=== PATIENT | male | born 1975 | race Caucasian/White ===

== ENCOUNTER 2022-11-20 19:46 | Emergency (ER) | payer OTHER, SELFPAY ==
[2022-11-20 19:56] VITALS: BP 173/95; PULSE 89; RESP 18; TEMP 36.7; O2SAT 99; BMI 28.0
[2022-11-20] MEDS: 0.9 % SODIUM CHLORIDE 1000 ml 1,000 ML IV (20:45)
[2022-11-20 20:57] LABS: Basophils Absolute Auto 0.02 K/uL (0.00-0.30); Basophils Percent Auto 0.2 % (0.0-3.0); Eosinophils Absolute Auto 0.07 K/uL (0.00-0.50); Eosinophils Percent Auto 0.7 % (0.0-7.0); Hematocrit 42.6 % (37.0-53.0); Hemoglobin* 15.3 gm/dL (13.5-17.5); Immature Granulocytes Abs Auto 0.02 K/uL (0.00-0.30); Immature Granulocytes Pct Auto 0.2 %; Lymphocytes Percent Auto 28.4 % (20-44); Mean Corpuscular HGB Conc 36 gm/dL (32-36); Mean Corpuscular Hemoglobin 31 pg (26-34); Mean Corpuscular Volume 86 fL (80-100); Monocytes Percent Auto 8.6 % (0.0-11.0); Neutrophils Absolute Auto 6.33 K/uL (1.7-7.0); Neutrophils Percent Auto 61.9 % (42.0-72.0); Platelet Count* 336 K/uL (140-440); RDW Coefficient of Variation % 11.8 % (11.5-15.5); Red Blood Count 4.97 m/uL (4.30-5.90); White Blood Count* 10.22 K/uL (4.50-11.00)
[2022-11-20 21:04] LABS: Slide Review Reflex No
[2022-11-20 21:24] LABS: Chloride* 102 mmol/L (96-114); Potassium* 4.1 mmol/L (3.6-5.1); Sodium* 138 mmol/L (135-149)
[2022-11-20 21:27] LABS: Blood Urea Nitrogen* 25 mg/dL (5-24); Calcium* 9.6 mg/dL (8.4-10.6); Carbon Dioxide* 25 mmol/L (20-32); Creatinine* 1.3 mg/dL (0.5-1.5); Est. Creatinine Clearance* 85.32; Estimated Glomerular Filt Rate 68 ml/min; Glucose* 122 mg/dL (60-115)
--- NOTE | 2022-11-20 21:44 | CRLHL7_ITS ---
For Patients: As a result of the Century Cures Act, medical imaging exams and procedure reports are released immediately into your electronic medical record. You may view this report before your referring provider. If you have questions, please contact your health care provider. INDICATION: Left-sided abdominal pain, history of cyst on prior MR TECHNIQUE: CT abdomen and pelvis acquired with 122 cc Isovue 370 IV contrast. COMPARISON: CT abdomen July 20, 2021 FINDINGS: Lower chest: Unremarkable. Liver: Unremarkable. Spleen: Unremarkable. Pancreas: Unremarkable. Gallbladder and bile ducts: Unremarkable. Adrenal glands: Unremarkable. Kidneys: Unchanged 3.5 cm simple left renal cyst. This measures 4 Hounsfield units in density. No left perinephric fat stranding. No renal stone or hydronephrosis. GI tract: Unremarkable. Appendix is normal. Vascular structures: Unremarkable. Lymph nodes: Unremarkable. Miscellaneous: Unremarkable. No free air or significant free fluid. Pelvic Organs: Unremarkable. Bones: Bilateral L4 pars defects with grade 1 anterolisthesis of L4-L5. Severe degenerative disc changes at this level. IMPRESSION: No etiology seen to explain left-sided pain. Stable appearing simple left renal cyst. Please note that all CT scans at this facility use dose modulation, iterative reconstruction, and/or weight-based dosing when appropriate to reduce radiation dose to as low as reasonably achievable. Dictated by Diana Guadalupe MD @ 11/20/2022 11:18:14 PM (Electronically Signed)
--- NOTE | 2022-11-20 21:45 | ED.NURSE ---
Iv fluids are finished and pain remains the same. offered to give medications and refused at this time. planning for a ct
[2022-11-20 22:07] LABS: Appearance Urine Clear (Clear); Color Urine Yellow (Yellow); Glucose Urine Negative (Negative)
[2022-11-20 22:08] LABS: Bilirubin Urine Negative (Negative); Blood Urine Negative (Negative); Ketones Urine Negative (Negative); Leukocyte Esterase Urine Negative (Negative); Nitrite Urine Negative (Negative); Protein Urine Negative (Negative); RBC Urine 0-2 (0-2); Urobilinogen Urine 0.2 (0.2-1.0); WBC Urine 0-2 (0-5)
--- NOTE | 2022-11-20 22:46 | ED_ITS ---
HPI - Back Pain/Injury General Date Seen: 11/20/22 Chief Complaint: Flank Pain Stated Complaint: Backpain, kidney area Time Seen by Provider: 11/20/22 20:00 Source: patient and family Mode of arrival: ambulatory Limitations: no limitations History of Present Illness HPI Narrative: patient is a 46-year-old gentleman who presents here for left flank discomfort that he has had chronically for the past few months. He was seen today, up in the [facility], for his back, by [facility], MRI was done which shows some L4-5 L5-S1 narrowing, he describes flank pain worse when he twists moves bends over, it also significantly affect some at night time. He has tried Tylenol ibuprofen with really no improvement he has tried some oxycodone that he says also does not help. He has seen his PA, and had an MRI Of his lumbar spine. The MRI was read, I can see on the axial is, there is a suggestion of a renal cyst on the left side, but this is incompletely imaged, it was suggested by the spine surgeon that he get an ultrasound which is going to be done tomorrow by his primary care physician. As the pain got worse he came in here tonight for the discomfort, he denies any fevers chills or sweats weight loss, personal history of malignancy, blood in his urine, and other than getting once up at night time for urination has really no other issues. Denies any numbness tingling or weakness into his lower extremities, no bowel or bladder symptoms associated with this. Denies any other GI symptoms, associated with this cough cold-like illnesses. He does notice however with twisting turning it does worsen. MD elicited complaint: back pain Relieving factors: none Work related injury: No Related Data Home Medications Medication Instructions Recorded Confirmed amlodipine 5 mg-benazepril 20 mg 1 cap PO DAILY 11/20/22 11/20/22 capsule oxycodone-acetaminophen 5 mg-325 1 tab PO Q4H PRN 11/20/22 11/20/22 mg tablet (Endocet) pantoprazole 40 mg tablet,delayed 40 mg PO DAILY 11/20/22 11/20/22 release (Protonix) Allergies Allergy/AdvReac Type Severity Reaction Status Date / Time No Known Drug Allergies Allergy Verified 11/20/22 19:59 Review of Systems Status of ROS: Reports: 10 or more systems reviewed and unremarkable except as noted in History and below [facility] Medical History Lumbar back pain Social History Smoking Status: Never smoker Do you use any of these nicotine containing products: None How often do you have a drink containing alcohol: never AUDIT-C Alcohol total score: 0 Non-prescribed substance use: denies use service: No Exam Narrative: Exam Narrative: Patient is speaking normally,no problem with slurring words, oriented x3. Head eyes ears nose and throat exam show equal pupils, no scleral icterus, extraocular muscles are normal, no facial droop, speech is normal, trachea normal and midline. Thyroid normal midline palpable not enlarged. Chest shows symmetrical rise bilaterally, normal auscultation with no wheezes, no increased work of breathing, no overt bruising or lesions seen, no tenderness is noted on auscultation. Heart sounds normal with no S3-S4 no murmurs clicks or gallops. Abdomen shows no obvious masses or hepatosplenomegaly, no organomegaly, bowel sounds are normal in all quadrants. No tenderness is noted also in all quadrants. Upper and lower extremities show normal power, normal range of motion, pulses are normal, sensations normal, fine motor movements are normal, pelvis is stable to rocking. Cervical spine shows normal range of motion, and palpably not tender. Thoracic spine shows normal range of motion, and palpably not tender, lumbar spine shows no tenderness to palpation percussion and is otherwise normal range of motion. There is some to pain however elicited, any to localizes this over the left side, with some radiation around to the front. No masses, noted on the left side, extension, side flexion, or all normal, he has type hamstrings, SLR is are normal the 90? with no augmentation, reflexes are 0-4 his knees and ankles, with otherwise normal power.Skin shows no rashes, petechiae or eccymosis. Const: Vital Signs, click to edit/add: Vital Signs - 24 hr 11/20/22 19:56 11/20/22 23:38 11/20/22 23:15 Temperature 98.0 F 98.0 F 98.0 F Pulse Rate [Right Pulse Oximeter] 89 89 78 Respiratory Rate 18 18 18 Blood Pressure [Ri ght Upper Arm] 173/95 H 173/95 H 165/74 H Pulse Oximetry 99 99 Oxygen Delivery Me thod Room Air Room Air Course Course Hospital Course: Discussed with the patient that his blood tests are all normal, his CT scan did not show any acute or chronic finding suggestive of a cause of his left flank pain. I gave him a copy of this. I would suggest follow up with primary care, this may be muscle related, I do like his spine surgeons idea that maybe they should do MRI of his thoracic spine, this will rule out any other intrinsic abnormality there. I did tell him however that I am reassured by today I would recommend that he go through with his ultrasound just to make sure that were covering all the bases. I did offer him some muscle relaxants, but he declined this intervention. Vital Signs Vital signs: Initial Vital Signs Temperature 98.0 F 11/20/22 19:56 Temperature Source Temporal Artery Scan 11/20/22 19:56 Pulse Rate 89 11/20/22 19:56 Respiratory Rate 18 11/20/22 19:56 Blood Pressure 173/95 H 11/20/22 19:56 Blood Pressure Mean 121 11/20/22 19:56 Blood Pressure Position Sitting 11/20/22 19:56 Pulse Oximetry 99 11/20/22 19:56 Oxygen Delivery Method 11/20/22 19:56 Vital Signs Temperature 98.0 F 11/20/22 19:56 Pulse Rate 89 11/20/22 19:56 Respiratory Rate 18 11/20/22 19:56 Blood Pressure 173/95 H 11/20/22 19:56 Pulse Oximetry 99 11/20/22 19:56 Oxygen Delivery Method 11/20/22 19:56 Temperature 98.0 F 11/20/22 23:38 Pulse Rate 89 11/20/22 23:38 Respiratory Rate 18 11/20/22 23:38 Blood Pressure 173/95 H 11/20/22 23:38 Pulse Oximetry 99 11/20/22 23:15 Oxygen Delivery Method 11/20/22 23:15 MDM - Back Pain/Injury MDM Narrative Medical decision making narrative: Life-threatening differential diagnosis considered include: Cauda equina an epidural abscess, other differential diagnosis considered includes sprain, contusion, nerve root entrapment, radiculopathy, muscle spasm, urolithiasis, lumbar fracture, pyelonephritis, appendicitis, biliary colic, as well as other etiologies. The patient denies saddle anesthesia bowel or bladder incontinence or lower extremity weakness, recent weight loss, or history of malignancy. I discussed with him at this point we will do some blood test I will do a CT scan, as he has the ultrasound for tomorrow, this will be more indicative of kidney issues, we can rule out renal colic, I explained to him that this may be musculoskeletal given his presentation and then he will need to follow-up with primary care Differential Diagnosis Differential diagnosis: Likely lumbar radiculopathy, sciatica, strain of lumbar region, renal colic, pyelonephritis, thoracic back pain, AAA and discitis Medical Records Attestation: I reviewed the patient's medical records. Lab Data Attestation: I reviewed the patient's lab results. Labs: Lab Results 11/20/22 11/20/22 11/20/22 Range/Units 20:00 20:36 20:45 WBC 10.22 (4.50-11.00) K/uL RBC 4.97 (4.30-5.90) m/uL Hgb 15.3 (13.5-17.5) gm/dL Hct 42.6 (37.0-53.0) % MCV 86 (80-100) fL MCH 31 (26-34) pg MCHC 36 (32-36) gm/dL RDW Coeff of Franc[place]sc[place] 11.8 (11.5-15.5) % Plt Count 336 (140-440) K/uL Neut % (Auto) 61.9 (42.0-72.0) % Lymph % (Auto) 28.4 (20-44) % Jefferson % (Auto) 8.6 (0.0-11.0) % Eos % (Auto) 0.7 (0.0-7.0) % Baso % (Auto) 0.2 (0.0-3.0) % Neut # (Auto) 6.33 (1.7-7.0) K/uL Lymph # (Auto) 2.90 (0.90-2.90) K/uL Jefferson # (Auto) 0.90 (0.00-0.90) K/UL Eos # (Auto) 0.07 (0.00-0.50) K/uL Baso # (Auto) 0.02 (0.00-0.30) K/uL Sodium (135-149) mmol/L Potassium (3.6-5.1) mmol/L Chloride (96-114) mmol/L Carbon Dioxide (20-32) mmol/L BUN (5-24) mg/dL Creatinine (0.5-1.5) mg/dL Estimated Creat Clear Estimated GFR ml/min Glucose (60-115) mg/dL Calcium (8.4-10.6) mg/dL Urine Color Cancelled Yellow Urine Appearance Cancelled Clear Urine pH Cancelled 7.0 Ur Specific [place] Cancelled 1.020 Urine Protein Cancelled Negative Urine Glucose (UA) Cancelled Negative Urine Ketones Cancelled Negative Urine Blood Cancelled Negative Urine Nitrite Cancelled Negative Urine Bilirubin Cancelled Negative Urine Urobilinogen Cancelled 0.2 Ur Leukocyte Esterase Cancelled Negative Urine RBC 0-2 (0-2) Urine WBC 0-2 (0-5) Ur Squamous Epith Cells None (None-Few) Urine Bacteria None (None) 11/20/22 Range/Units 20:45 WBC (4.50-11.00) K/uL RBC (4.30-5.90) m/uL Hgb (13.5-17.5) gm/dL Hct (37.0-53.0) % MCV (80-100) fL MCH (26-34) pg MCHC (32-36) gm/dL RDW Coeff of Franc[place] (11.5-15.5) % Plt Count (140-440) K/uL Neut % (Auto) (42.0-72.0) % Lymph % (Auto) (20-44) % Jefferson % (Auto) (0.0-11.0) % Eos % (Auto) (0.0-7.0) % Baso % (Auto) (0.0-3.0) % Neut # (Auto) (1.7-7.0) K/uL Lymph # (Auto) (0.90-2.90) K/uL Jefferson # (Auto) (0.00-0.90) K/UL Eos # (Auto) (0.00-0.50) K/uL Baso # (Auto) (0.00-0.30) K/uL Sodium 138 (135-149) mmol/L Potassium 4.1 (3.6-5.1) mmol/L Chloride 102 (96-114) mmol/L Carbon Dioxide 25 (20-32) mmol/L BUN 25 H (5-24) mg/dL Creatinine 1.3 (0.5-1.5) mg/dL Estimated Creat Clear 85.32 Estimated GFR 68 ml/min Glucose 122 H (60-115) mg/dL Calcium 9.6 (8.4-10.6) mg/dL Urine Color Urine Appearance Urine pH Ur Specific [place] Urine Protein Urine Glucose (UA) Urine Ketones Urine Blood Urine Nitrite Urine Bilirubin Urine Urobilinogen Ur Leukocyte Esterase Urine RBC (0-2) Urine WBC (0-5) Ur Squamous Epith Cells (None-Few) Urine Bacteria (None) Discharge Plan Discharge Clinical Impression: Chronic left-sided back pain Patient Disposition: Home w/ Parent or Adult Condition: Stable Instructions: Back Pain (ED) Additional Instructions: home rest use of Tylenol, heat or ice, follow-up with primary care, your CT scan did not show any acute or chronic issues, the issue with her kidney was a small cyst, which is normal and a lot of things. There is no evidence of kidney stones, or backup her any other issue. Prescriptions: No Action oxycodone-acetaminophen [Endocet] 5-325 mg tablet 1 tab PO Q4H PRN amlodipine-benazepril 5-20 mg capsule 1 cap PO DAILY pantoprazole [Protonix] 40 mg tablet,delayed release (DR/EC) 40 mg PO DAILY Follow Up/Referrals: Dale Barrera MD [Primary Care Provider] - Stand Alone Forms: Recensus Info Instructions
[2022-11-20 23:15] VITALS: BP 165/74; PULSE 78; RESP 18; TEMP 36.7; O2SAT 99
[2022-11-20 23:38] VITALS: BP 173/95; PULSE 89; RESP 18; TEMP 36.7
== END 2022-11-20 23:40 | disposition home or self-care (01) ==
PROVIDERS: Emergency Provider Family Medicine; PCP Family Medicine
DX: M54.9 Dorsalgia, unspecified (principal)
CPT/HCPCS: 36415; 74177; 80048; 81001; 81003; 85025; 96360; 99284; J7030; Q9967

== ENCOUNTER 2025-02-07 14:22 | Emergency (ER) | payer OTHER, SELFPAY ==
--- OUTSIDE RECORDS SUMMARY | 2025-02-07 14:24 | XMS_ITS | Data Portability ---
Author Organization [facility], [facility] Address [address] [place] [address] Assessment Encounter Date Assessment Date Assessment LastModified by Organization Details LastModified Time 10/09/2022 10/09/2022 46 year old male with right epididymal mass Not available 10/09/2022 08:31:57 Plan of Treatment Reminders Order Date Submit Date Provider Last Modified By Organization Details Last Modified Time Details Appointments None recorded. Lab None recorded. Referral None recorded. Procedures None recorded. Surgeries orchiecto my, radical (SURG) 022 [email or web address] Not available 14:22:15 Imaging None recorded. Medication Orders None recorded. Patient TargetsNo targets recorded. Patient InstructionsNo instructions recorded. Reason for Referral None Reported. Results Created Date Observation Date Name Description Value Unit Range Abnormal Flag Note LastModifiedBy Organization Detail LastModifiedTime 10/08/2010/03/2022 US, scrot um No observ ation record ed. [email or web address] Not Available 2021 11:19:31 Result Notes None recorded. Procedures Surgical History Date Name Laterality Status Provider Name and Address Organization Details Recorded Time Hernia Repair completed Corrine Emanuel [facility] 10/09/2022 10:44:15 Remove tonsils and adenoids completed Corrine Emanuel [facility] 10/09/2022 10:44:31 procedure on knee completed Corrine Emanuel [facility] 10/09/2022 10:44:38 Imaging Results Imaging Date Name Status LastModified by Organiz ation Details LastModified Time 10/03/2022 US, scrotum completed Information n ot available 10/09/2022 11:19:31 Procedure Notes None recorded. Medical Equipment None Reported. Allergies No known drug allergies Medications Name Sig Start Date Stop Date Status Note LastModified by Organization Details LastModified Time amlodipine 5 mg-benazepri l 20 mg capsule TAKE 1 CAPSULE BY MOUTH EVERY DAY active Not Available Not Available No t Available pantoprazole 40 mg tablet,delay ed release TAKE 1 TABLET BY MOUTH EVERY DAY active Not Available Not Available No t Available amoxicillin 500 mg-potassium clavulanate 125 mg tablet TAKE ONE TABLET BY MOUTH TWICE DAILY FOR 1 WEEK 10/09 completed Not Available Not Available Not Available Vitals Date Recorded Body height Body mass index (BMI) Body weight Provider Name and Address Organization Details Last Updated DateTime 10/09/2022 193.04 cm 27.4 kg/m2 402303.28 g Corrine Adelfo [facility] 10/09/2022 10:42:55 Social History Question Answer Notes LastModified by Organizat ion Details LastModified Time Tobacco Smoking Status Never Smoker Corrine Adelfo null, [facility] 10/09/2022 10:44:06 What Is Your Level Of Alcohol Consumption? Moderate Information not available 10/09/2022 What Was The Date Of Your Most Recent Tobacco Screening? 10/09/2022 Information not available 10/09/2022 Sex: Unknown Functional Status None recorded. Mental Status None recorded. Family History Relationship Description Onset Age of this Age Resolved Age Notes LastModified by Organization Details LastModified Time Paternal Grandfather Family history of cancer of colon [email or web address] Not available 09/18 10:43:40 Father Malignant tumor of esophagus [email or web address] Not available 09/18 10:43:54 Medical History Condition Response GERD/Acid Reflux Y High Blood Pressure Y Past Encounters Encounter ID Performer Location Encounter Start Date Encounter Closed Date Diagnosis/Indication Diagnosis SNOMED-CT Code Diagnosis ICD10 Code Diagnosis Note [id number] Corrine Mayo [facility] [address] [place] [address] 10/09/2022 10:37:32 10/14/2022 12:04:29 Scrotal mass 52727216 N50.89 - We discussed the differenti al diagnosis of epididymal masses, the vast majority of which prove benign. We discussed that without surgical resection we cannot be 100% sure of his nature and that generally percutaneo us biopsies are not recommende d.- Removal would be via right inguinal radical orchiectom y and we could consider testicular prosthesis . We could also consider repeat scrotal US in 3 months at at 1 year. If not size increase, then could consider active surveillan ce. Risks and benefits of each course of action discussed. - After our discussion he has elected to proceed with radical orchiectom y. Will hold off on testicular prosthesis for now. We did discuss option of this down the road as well. Health Concerns Section Related Observation LastModified by Organization Detai ls LastModified Time None Recorded Concern Status LastModified by Organization Details LastModified Time None Recorded Advance Directives Directive None Recorded Payers Encounter Date Sequence Insurance Name Policy Number Policy Blackwell Covered Member ID Blackwell Member ID Guarantor Name 10/09/2022 1 [facility] [id number] Katina Natarajan [id number] Jem Natarajan Notes Date Note Type Note Provider Name and Address Organization Details Recorded Time 10/09/2022 text/html Scrotal Swelling or MassReported bypatient.Notes:Mr Andrew Natarajan is a very pleasant 46 yoM who is referred to me by his PCP, Dr. Dale Barrera, regarding right-sided scrotal mass. He first noted this in early August prior to seeing his PCP. Denies any pain, dyscomfort, or effect on sexual/urinary function. He underwent a scrotal US for my review which shows that the area of question correlates with a solid mass within the tail of the right epididymis. Rubén Baxter MD [address], [place], [address], [place] [facility] 10/09/2022 11:22:30
--- OUTSIDE RECORDS SUMMARY | 2025-02-07 14:24 | XMS_ITS | Clinical Summary ---
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 Name Role Phone Unavailable Primary Care Provider Unavailabl e Allergies Active Allergy Reactions Criticality Noted Date Comments Diagnostic X-Ray Materials Dyspnea 8 Medications No known medications Active Problems No known active problems Immunizations Name Administration Dates Next Due Influenza Unspecified Formulation 09/17/2017,12/2014 TD >7yrs With Preservative 02/19/2016,06/16/2006 Medical History Medical History Date Comments Essential hypertension, benign Social History Tobacco Use Types Packs/Day Years Used Date Smoking Tobacco: Never Alcohol Use Standard Drinks/Week Comments Yes 0 (1 standard drink = 0.6 oz pur e alcohol) occas Sex and Gender Information Value Date Recorded Sex Assigned at Not on file 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
--- OUTSIDE RECORDS SUMMARY | 2025-02-07 14:24 | XMS_ITS | Encounter Summary ---
Author Organization [facility] Address [address] [address] Phone Care Team Providers Care Nurse Assistant Name Role Phone Unavailable Primary Care Provider Unavailabl e Encounter Details Date Type Department Care Team (Late st Contact Info) Description 03/06/2018 Scanned - Medical Reports [facility] [address] [place], [place] [id number] Elsewhere, Pcp Social History Tobacco Use Types Packs/Day Years Used Date Smoking Tobacco: Never Alcohol Use Standard Drinks/Week Comments Yes 0 (1 standard drink = 0.6 oz pur e alcohol) occas Sex and Gender Information Value Date Recorded Sex Assigned at Not on file 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 Gender Identity Not on file Sexual Orientation Not on file documented as of this encounter Functional Status * Patient's Vision Adequate to Safely Complete Daily Activities Answer Date of Assessment Author Yes 02/08/2018 1:00 AM Dolores Coelho RN * Patient's Memory Adequate to Safely Complete Daily Activities Answer Date of Assessment Author Yes 02/08/2018 1:00 AM Dolores Coelho RN documented as of this encounter Mental Status * Patient's Judgment Adequate to Safely Complete Daily Activities Answer Entry Date Author Yes 02/08/2018 1:00 AM Dolores Coelho RN documented in this encounter Plan of Treatment Not on file documented as of this encounter Procedures Procedure Name Priority Date/Time Associated Diagnosis Comments ECG 12 LEAD, TRACING ONLY Routine 02/02/2018 documented in this encounter Results * ECG 12 LEAD, TRACING ONLY (02/02/2018) us Pcp Elsewhere [facility] NON-INVASIVE CARDIOLOGY Final Result documented in this encounter Visit Diagnoses Not on filedocumented in this encounter
--- OUTSIDE RECORDS SUMMARY | 2025-02-07 14:25 | XMS_ITS | Clinical Summary ---
Author Organization [facility] Address [address] [place] [address] Care Team Providers Care Enrobing Machine Feeder Name Role Phone Alessandro Bolaños MD Unavailable [phone] Dale Barrera MD Primary Care Provider Alexa Stevens MD Unavailable [phone] Allergies Active Allergy Reactions Criticality Noted Date Comments Iodine Respiratory Distress High 08/20/2010 Diatrizoate Allergen Respiratory Distress 12/23 PT WAS GIVEN CONTRAST AT AGE 11-HE FELT LIKE HE HAD AN ASTHMA ATTACK BUT NO TREATMENT GIVEN. PT WAS GIVEN VISIPAQUE WITHOUT PREMED 12/26/16 AND DIDN'T HAVE ANY PROBLEMS. Medications amLODIPine-benaze pril (LOTREL) 10-40 mg capsuleIndication s:Essential hypertension Take 1 Capsule by mouth once daily. 90 Capsule 3 5 Active pantoprazole (PROTONIX) 40 mg delayed-release tabletIndications :Chronic GERD Take 1 Tablet (40 mg) by mouth once daily before a meal. 90 Tablet 3 5 Active hydroCHLOROthiazi de 25 mg tabletIndications :Benign essential HTN Take 1 Tablet (25 mg) by mouth once daily. 90 Tablet 3 5 Active Active Problems Problem Noted Date Diagnosed Date Coronary calcium score of 15.24 December 2023. Adenomatous colon polyp 12/20/2021 Overview (12/20/2021): Colonoscopy 12/2021 TA, repeat in 7 years Prediabetes 11/17/2018 Essential hypertension 01/27/2014 GERD (gastroesophageal reflux disease) 0 Overview (12/13/2016): EGD 03/2014 reflux, no Blood's, consider EGD in 10 years EGD 11/2016 small hyperplastic polyp in the stomach, esophagus stomach and duodenum otherwise normal, no follow-up upper endoscopy needed Encounters Date Type Department Care Team Description 02/07/2025 1:50 PM CDT Telemedicine [facility] [address] [place] [address] Radha Cano, RAZA Cough; Near Syncope; Telehealth (Virtual visit, no vitals taken ) 02/07/2025 Travel 12/31/2024 10:30 AM GEAR LAPPER Office Visit [facility] [address] [place] [address] Dale Barrera MD Physical (49 year old physical ); Hypertension Care Management (elevated home BP readings) 12/31/2024 Travel 12/28/2024 Travel 12/21/2024 Refill [facility] [address] [place] [address] Dale Barrera MD Refill Request (Amlodipine-benazepri l (5-20 Mg)) 12/10/2024 Refill [facility] [address] [place] [address] Dale Barrera MD Refill Request (Pantoprazole) from Last 3 Months Immunizations Immunization Administration Dates Next Due AMB Influenza, IIV3 (Age >=3 years)(Flu Clinic Only) 08/29/2012,09/11/2011 AMB Influenza, IIV4 PF (=>6 mos Flulaval,Fluzone Fluarix)(Flu Clinic Only) 08/26/2018,09/17/2017,08/18/2015 COVID-19 VACCINE SPIKEVAX (M ODERNA 50MCG/0.5ML) 12YO+ PFS 09/03/2024,10/10/2023 COVID-19 vaccine (Moderna 100mcg/0.5mL) PF, MDV 03/15/2021,02/15/2021 COVID-19 vaccine (ControlScanBio NTech 30mcg/0.3mL) 12YO+ BIVALENT PF, MDV 09/23/2022 COVID-19 vaccine (ControlScanBio NTech 30mcg/0.3mL) 12YO+ TREVOR-SUCROSE PF, MDV 04/17/2022 INFLUENZA, IIV3 PF (AGE >= 6 MO) 09/03/2024 Influenza, IIV3 (Age >=3 years) 10/12/20 13,10/01/2011,09/19/2010,2008,08/18/2008 Influenza, IIV4 08/12/2023, 2,07/30/2021,2019,08/14/2016 Influenza, IIV4 (=>6mos) MDV 09/15/2019 Pneumococcal Conj 20-valent (Prevnar 20) 12/31/2024 Td (Age >=7 Years) 02/19/2016,06/16/2006, 987 Tdap 06/16/2006 Zoster (Shingrix-RZV, recombinant) 12/31/2024, Family History Medical History Relation Name Comments Esophageal cancer Father at 72 Cancer-prostate Maternal Grandfather late in life Diabetes Maternal Grandmother type I Arthritis Mother rheumatoid Heart Disease Neg. 1 Cancer-colon Paternal Grandfather Anesthesia Problem No Family History Relation Name Status Comments Father Maternal Grandfather Maternal Grandmother Mother Neg. 1 Neg. 2 Paternal Grandfather Social History Tobacco Use Types Packs/Day Years Used Date Smoking Tobacco: Never Smokeless Tobacco: Never Tobacco Cessation:Counseling Given: Yes Alcohol Use Standard Drinks/Week Comments Yes 2 (1 standard drink = 0.6 oz pur e alcohol) 2x per week PHQ-2 Answer Date Recorded PHQ-2 TOTAL SCORE 0 12/31/2024 Social Connections Answer Date Recorded Do you often feel lonely or isolated from those around you? 0 12/28/2024 Financial Resource Strain Answer Date R ecorded Difficulty of Paying Living Expenses 3 12/28/2024 Difficulty of Paying Living Expenses Not on file 12/28/2024 Food Insecurity Answer Date Recorded Do you worry your food will run out before you are able to buy more? 1 12/28/2024 Transportation Needs Answer Date Record ed Does lack of transportation keep you from medica l appointments? 1 12/28/2024 Does lack of transportation keep you from work, meetings or getting things that you need? 1 12/28/2024 Housing Stability Answer Date Recorded What is your housing situation today? 1 12/28/2024 Utilities Answer Date Recorded Do you have trouble paying f or utilities (for example, heat, electricity, water, phone)? 1 12/28/2024 Sex and Gender Information Value Date Recorded Sex Assigned at Not on file Legal Sex Male 6:36 AM GEAR LAPPER Gender Identity Not on file Sexual Orientation Not on file Obstetrics History Last Filed Vital Signs Vital Sign Reading Time Taken Comments Blood Pressure 146/82 12/31/2024 10:28 AM GEAR LAPPER Pulse 77 12/31/2024 10:28 AM GEAR LAPPER Temperature 36.8 C (98.2 F) 11/22/2023 12:32 PM GEAR LAPPER Respiratory Rate 14 11/22/2023 12:32 PM GEAR LAPPER Oxygen Saturation 99% 12/31/2024 10:28 AM GEAR LAPPER Inhaled Oxygen Concentration - - Weight 108.4 kg (239 lb) 12/31/2024 10:28 AM GEAR LAPPER Height 191.5 cm (6' 3.39) 12/31/2024 10:[address] Body Mass Index 29.56 12/31/2024 10:28 AM GEAR LAPPER Plan of Treatment Health Maintenance Due Date Last Done Comments BMI (ht and wt on same day) for age 18+ 12/31/2025 12/31/2024, 12/17/2023, 10/17/2022, Additional history exists Depression screening for age 12+ 12/31/2025 12/31/2024, 12/18/2023, 12/17/2023, Additional history exists Tetanus booster 02/18/2026 02/19/2016, 05/19, 06/16/2006, Additional history exists Colonoscopy through age 75 12/18/202812/18, 12/18/2021, 12/18/2021 Lipids for age 45-75 12/31/2029 12/31/2024, 12/17/2023, 09/23/2022, Additional history exists Tdap Completed 06/16/2006 Hepatitis C screening for ag e 18-79 Completed 09/23/2022 HIV for age 15-65 Completed 12/17/2023 COVID-19 vaccine series Completed 09/03/20 24, 10/10/2023, 09/23/2022, Additional history exists Influenza Vaccine Completed 09/03/2024, , 09/16/2022, Additional history exists Pneumococcal series for age 50+ Completed Zoster (shingles) series for age 50+ Completed 12/31/2024, 09/03/2024 Procedures Procedure Name Priority Date/Time Associated Diagnosis Comments LIPID PANEL W REFLEX MEASURED LDL Routine 12/31/2024 11:04 AM GEAR LAPPER Dyslipidemia HEMOGLOBIN A1C Routine 12/31/2024 11:04 AM GEAR LAPPER Prediabetes BASIC METABOLIC PANEL Routine 12/31/2024 11:04 AM GEAR LAPPER Essential hypertension ANTI HIV 1/2 Routine 12/17/2023 9:26 AM GEAR LAPPER Screening for HIV (human immunodeficiency virus) ANTI HCV Routine 09/23/2022 4:10 PM GEAR LAPPER Need for hepatitis C screening test COLONOSCOPY SCREENING Routine 12/18/2021 10:13 AM GEAR LAPPER Screen for colon cancer from Last 3 Months or Most Recently Relevant to Health Maintenance Results * HEMOGLOBIN A1C (12/31/2024 11:04 AM GEAR LAPPER) HEMOGLOBIN A1C 5.6 <5.7 % of total Hgb [facility] [employer] Comment: For the purpose of screening for the presence of diabetes: <5.7% Consistent with the absence of diabetes 5.7-6.4% Consistent with increased risk for diabetes (prediabetes) > or =6.5% Consistent with diabetes This assay result is consistent with a decreased risk of diabetes. Currently, no consensus exists regarding use of hemoglobin A1c for diagnosis of diabetes in children. According to [place] Diabetes Association (ADA) guidelines, hemoglobin A1c <7.0% represents optimal control in non- diabetic patients. Different metrics may apply to specific patient populations. Standards of Medical Care in Diabetes(ADA). Blood BLOOD SPECIMEN / Unknown 12/31/2024 11:04 AM GEAR LAPPER 12/31/2024 11:05 AM GEAR LAPPER Dale Barrera MD CHEMISTRY Final Result Content Syndicate: [employer] [facility] [address] [place] [address], [facility] [address] [place] [address] * (ABNORMAL) LIPID PANEL W REFLEX MEASURED LDL (12/31/2024 11:04 AM GEAR LAPPER) [facility] Signature CHOLESTEROL, TOTAL 208(H) <200 mg/dL [facility] [employer] [facility] HDL CHOLESTEROL 55 > OR = 40 mg/dL [facility] TRIGLYCERIDES 227(H) <150 mg/dL [facility] Comment: If a non-fasting specimen was collected, consider repeat triglyceride testing on a fasting specimen if clinically indicated. Nando et al. J. of Clin. Lipidol. 2015;9:129-169. LDL-CHOLESTEROL 119(H) mg/dL (calc) [facility] [employer] [facility] Comment: Reference range: <100 Desirable range <100 mg/dL for primary prevention; <70 mg/dL for patients with CHD or diabetic patients with > or = 2 CHD risk factors. LDL-C is now calculated using the Valdez-J oAnn calculation, which is a validated novel method providing better accuracy than the Friedewald equation in the estimation of LDL-C. Valdez SS et al. KENNEDY. 2013;310(19): 9676-0890 (http://education.Olery/faq/RTD650) CHOL/HDLC RATIO 3.8 <5.0 (calc) [facility] NON HDL CHOLESTEROL 153(H) <130 mg/dL (calc) [facility] Comment: For patients with diabetes plus 1 major ASCVD risk factor, treating to a non-HDL-C goal of <100 mg/dL (LDL-C of <70 mg/dL) is considered a therapeutic option. Blood BLOOD SPECIMEN / Unknown 12/31/2024 11:04 AM GEAR LAPPER 12/31/2024 11:05 AM GEAR LAPPER us Dale Barrera MD CHEMISTRY Final Result Content Syndicate: [employer] [facility] [address] [place] [address], [place] [phone] [employer] [address] [place] [address] * (ABNORMAL) BASIC METABOLIC PANEL (12/31/2024 11:04 AM GEAR LAPPER) Pathologist [facility] GLUCOSE 107(H) 65 - 99 mg/dL [facility] Comment: Fasting reference interval For someone without known diabetes, a glucose value between 100 and 125 mg/dL is consistent with prediabetes and should be confirmed with a follow-up test. UREA NITROGEN (BUN) 15 7 - 25 mg/dL [facility] CREATININE 1.32(H) 0.70 - 1.30 mg/dL [facility] EGFR 65 > OR = 60 mL/min/1.7 3m2 [facility] BUN/CREATININE RATIO 11 6 - 22 (calc) [facility] SODIUM 137 135 - 146 mmol/L [facility] POTASSIUM 4.6 3.5 - 5.3 mmol/L [facility] CHLORIDE 100 98 - 110 mmol/L [facility] CARBON DIOXIDE 26 20 - 32 mmol/L [facility] ELECTROLYTE BALANCE 11 7 - 17 mmol/L (calc) [facility] CALCIUM 10.0 8.6 - 10.3 mg/dL [facility] Blood BLOOD SPECIMEN / Unknown 12/31/2024 11:04 AM GEAR LAPPER 12/31/2024 11:05 AM GEAR LAPPER us Dale Barrera MD CHEMISTRY Final Result Content Syndicate: [employer] [facility] [address] [place] [address], [place] [phone] [employer] [place] [address] [place] [address] * ANTI HIV 1/2 (12/17/2023 9:26 AM GEAR LAPPER) [facility] HIV-1/HIV-2 SCREEN Non-Reacti ve Non-Reacti ve 12/17/2023 9:58 PM GEAR LAPPER [facility] Comment:HIV-1 p24 and HIV-1/ HIV-2 Ab Not Detected. Blood BLOOD SPECIMEN / Unknown Venipuncture / Unknown 12/17/2023 9:26 AM GEAR LAPPER 12/17/2023 9:27 AM GEAR LAPPER Dale Barrera MD SEND OUTS Final Result [facility] [address] [place] [address], [place] * ANTI HCV (09/23/2022 4:10 PM GEAR LAPPER) [facility] HEPATITIS C ANTIBODY Non-React demetra Non-React demetra 09/24/2022 4:39 PM GEAR LAPPER [facility] Comment:Antibodies to HCV no t detected; does not exclude the possibility of exposure to HCV. Blood BLOOD SPECIMEN / Unknown Venipuncture / Unknown 09/23/2022 4:10 PM GEAR LAPPER 09/23/2022 4:14 PM GEAR LAPPER Dale Barrera MD SEND OUTS Final Result [facility] [address] [place] [address], [place] * COLONOSCOPY (12/18/2021 10:10 AM GEAR LAPPER) 12/18/2021 10:1 0 AM GEAR LAPPER Narrative Transcriptions Valdez Juarez MD - 12/18/2021 11:26 AM CST Patient Name: Jem Natarajan Procedure Date: 12/18/2021 Gender: Male Date of : 1975 Admit Type: Outpatient Procedure: Colonoscopy Proceduralist: Valdez Juarez MD , Elda Hernandez RN(Nurse) Referring MD: aVldez Juarez Indications/Pre-Op Diagnosis: Screening for colorectal malignant neoplasm, This is the patient's first colonoscopy Medications: Fentanyl 100 micrograms IV, Midazolam 4 mgIV, The level of sedation administered wasmoderate Procedure Description: The patient had risks, benefits and alternatives explained to andgave informed consent. The patient had a stable cardiopulmonary status and judged an adequate candidate for conscious sedation. The Colonoscope was passed through the anus and advanced to thececum, identified by appendiceal orifice and ileocecal valve. Thecolonoscopy was performed without difficulty. The patient tolerated the procedure well. The quality of the bowel preparation was good. The ileocecal valve, appendiceal orifice, and rectum were photographed. Complications: No immediate complications. Estimated Blood Loss & Specimen: Estimated blood loss: none. Specimen collected - Yes and sent to Laboratory Findings: The perianal and digital rectal examinations were normal. Two sessile polyps were found in the descending colon. The polypswere 3 mm in size. These polyps were removed with a cold snare. Resectionand retrieval were complete. The exam was otherwise without abnormality on direct and retroflexion views. Impressions/Post-Op Diagnosis: - Two 3 mm polyps in the descending colon, removed with a cold snare. Resected and retrieved. - The examination was otherwise normal on direct and retroflexionviews. Recommendation: - Patient has a contact number available for emergencies. The signsand symptoms of potential delayed complications were discussed with the patient. Return to normal activities tomorrow. Written discharge instructions were provided to the patient. - Resume previous diet. - Continue present medications. - Await pathology results. - Repeat colonoscopy is recommended. The colonoscopy date will be determined after pathology results from today's exam become available for review. Moderate Sedation: Moderate (conscious) sedation was administered by the endoscopy nurse and supervised by the endoscopist. The following parameters were monitored: oxygen saturation, heart rate, respiratory rate, blood pressure, adequacy of pulmonary ventilation and reponse to care. Please refer to the patient's medical record flowsheets and nursing notes for moderate sedation details. Total physician intraservice time was 17 minutes. Valdez Juarez MD 12/18/2021 11:26:21 AM This report has been signed electronically. Note Initiated On: 12/18/2021 10:10 AM Procedure Code(s): --- Professional --- 33143, Colonoscopy, flexible; with removalof tumor(s), polyp(s), or other lesion(s) bysnare technique Diagnosis Code(s): --- Professional --- Z12.11, Encounter for screening formalignant neoplasm of colon K63.5, Polyp of colon CPT copyright 2020 [place] [employer]. All rights reserved. The codes documented in this report are preliminary and upon insurance coder reviewmay be revised to meet current compliance requirements. Scope In: 11:05:08 AM Scope Withdrawal Time 0 hours 11 minutes 6 seconds Scope Out: 11:20:46 AM us Valdez Juarez MD PROCEDURE ORD Final Res ult from Last 3 Months or Most Recently Relevant to Health Maintenance Insurance [facility] Care Teams Enrobing Machine Feeder Relationship Specialty Start Date End Date Dale Barrera MD [address] [place] [address] PCP - General Family Practice 01/21/14 Alessandro Bolaños MD Urology Surgery - Urology 08/14/11 Alexa Stevens MD [address] [place] [address] Rheumatology Rheumatology 10/02/17
--- OUTSIDE RECORDS SUMMARY | 2025-02-07 14:25 | XMS_ITS | Clinical Summary ---
Author Organization [facility] Address [address] [place] [address]. [place] [address] Care Team Providers Care Alodize Machine Operator Name Role Phone Clinic, [facility] [place] Primary Care Provider Allergies Active Allergy Reactions Criticality Noted Date Comments Iodine Difficulty breathing 09/08/2005 IV Dye Medications LOTREL OR Take 5-20 mg by mouth daily Active pantoprazole (PROTONIX) 40 MG EC tablet Take 40 mg by mouth daily Active celecoxib (CELEBREX) 100 MG capsuleIndicati ons:Epididymal mass Take 1 capsule (100 mg) by mouth 2 times daily for 14 days 28 capsule 12/17/2022 Active Social History Tobacco Use Types Packs/Day Years Used Date Smoking Tobacco: Never Smokeless Tobacco: Never Tobacco Cessation:Counseling Given: Not Answered Alcohol Use Standard Drinks/Week Comments Yes 0 (1 standard drink = 0.6 oz pur e alcohol) Adolescent Education Answer Date Record ed Getting School Help Needed Not on file 08/24 Sex and Gender Information Value Date Recorded Sex Assigned at Not on file Legal Sex Male 3:44 AM DIRECTOR RECORDS MANAGEMENT Gender Identity Not on file Sexual Orientation Not on file Last Filed Vital Signs Vital Sign Reading Time Taken Comments Blood Pressure 140/93 12/17/2022 9:45 AM DIRECTOR RECORDS MANAGEMENT Pulse 77 12/17/2022 9:45 AM DIRECTOR RECORDS MANAGEMENT Temperature 36.2 C (97.1 F) 12/17/2022 9:45 AM DIRECTOR RECORDS MANAGEMENT Respiratory Rate 16 12/17/2022 9:45 AM DIRECTOR RECORDS MANAGEMENT Oxygen Saturation 98% 12/17/2022 9:45 AM DIRECTOR RECORDS MANAGEMENT Inhaled Oxygen Concentration - - Weight 106.2 kg (234 lb 3.2 oz) 12/17/2022 6:00 AM DIRECTOR RECORDS MANAGEMENT Height 193 cm (6' 4) 12/17/2022 6:00 AM DIRECTOR RECORDS MANAGEMENT Body Mass Index 28.51 12/17/2022 6:00 AM DIRECTOR RECORDS MANAGEMENT Plan of Treatment Health Maintenance Due Date Last Done Comments ADVANCE CARE PLANNING 1975 ANNUAL REVIEW OF HM ORDERS 1975 CT COLONOGRAPHY 1975 DIABETES SCREENING 1975 FIT 1975 FLEX SIG 1975 sDNA (Cologuard) 1975 COLONOSCOPY 1983 COLORECTAL CANCER SCREENING 1983 HIV SCREENING 1988 HEPATITIS B IMMUNIZATION (1 of 3 - 19+ 3-dose series) 1992 LIPID 2013 YEARLY PREVENTIVE VISIT 09/23/2023 09/23/2022 Pneumococcal Vaccine: 50+ Years (1 of 1 - PCV) 2023 ZOSTER IMMUNIZATION (1 of 2) 2023 COVID-19 Vaccine ( season) 2024 09/23/2022, 04/17/2022, 10/09/2021, Additional history exists INFLUENZA VACCINE (#1) 2024 , 07/30/2021, 07/18/2020, Additional history exists PHQ-2 (once per calendar year) 2024 DTAP/TDAP/TD IMMUNIZATION (4 - Td or Tdap) 02/18/2026 02/19/2016, 06/16/2006, 06/16/2006, Additional history exists HEPATITIS C SCREENING Completed 09/23/2022 HPV IMMUNIZATION Aged Out No longer e ligible based on patient's age to complete this topic MENINGITIS IMMUNIZATION Aged Out No l onger eligible based on patient's age to complete this topic Insurance [email or web address] Care Teams Alodize Machine Operator Relationship Specialty Start Date End Date [address] [address] PCP - General 12/17/22
[2025-02-07 14:28] VITALS: BP 142/93; PULSE 91; RESP 16; TEMP 36.6; O2SAT 98; BMI 27.6
--- NOTE | 2025-02-07 14:44 | ED_ITS ---
HPI - General Adult General Date Seen: 02/07/25 Chief complaint: Cough Stated complaint: Chest congestion, dizziness Time Seen by Provider: 02/07/25 14:31 History of Present Illness HPI narrative: pleasant 49 yo M with a history of hypertension (well controlled) but no history of diabetes, cancer, immunosuppression, asthma. He is referred to the ER today by his clinic phone triage line. He has been ill with a cough for about 2 weeks or so. It started 2 weeks ago with a nonproductive cough. At that time he did not have a fever but he did have headache, myalgias, body aches, fatigue. He also felt some tightness in his chest and has been feeling it for the past couple of weeks. Last week his cough changed and they came more productive of sputum. It has been intermittently productive of greenish and yellow sputum. He still feeling a little bit of tightness in his chest but not really shortness of breath. Sometimes during his coughing spells he gets lightheaded. This morning he was driving in his car any had what he felt was a fairly mild coughing spell that made him quite lightheaded. He did not really have any worsening pressure in his chest, chest pain. No palpitations. He did not lose consciousness. He called his clinic is referred here to the ER He is not having any GI symptoms. No vomiting or diarrhea. Normal appetite. He has been urinating normally. No swelling in his legs. No history of cardiac disease, CHF, or previous syncope. Related Data Home Medications ?Medication ?Instructions ?Recorded ?Confirmed pantoprazole 40 mg tablet,delayed 40 mg PO DAILY 11/20/22 02/07/25 release (Protonix) amlodipine 10 mg-benazepril 40 mg 1 cap PO DAILY 02/07/25 02/07/25 capsule hydrochlorothiazide 25 mg tablet 25 mg PO DAILY 02/07/25 02/07/25 Previous Rx's ?Medication ?Instructions ?Recorded doxycycline monohydrate 100 mg 100 mg PO BID PRN #14 caps 02/07/25 capsule Allergies Allergy/AdvReac Type Severity Reaction Status Date / Time No Known Drug Allergies Allergy Verified 10/16/24 09:13 [facility] Medical History Lumbar back pain ?M54.50 - Low back pain, unspecified (ICD-10) Social History Smoking Status: Never smoker Do you use any of these nicotine containing products: None How often do you have a drink containing alcohol: never AUDIT-C Alcohol total score: 0 Non-prescribed substance use: denies use service: No Exam Narrative: Exam Narrative: Constitutional: Appears well-developed and well-nourished. Alert. Conversant. Non toxic. HENT: Head: Atraumatic. TMs normal. Nose: Nose normal. Mouth/Throat: Oral mucosa is clear and moist. no trismus. Pharynx normal. Tonsils symmetric. No tonsillar enlargement, erythema, or exudate. Eyes: Conjunctivae normal. EOM normal. Pupils equal, round, and reactive to light. No scleral icterus. Neck: Normal range of motion. Neck supple. No tracheal deviation present. Cardiovascular: Normal rate, regular rhythm. No gallop. No friction rub. No mur mur heard. Symmetric radial artery pulses Pulmonary/Chest: Effort normal. No stridor. No respiratory distress. Scares bilateral apiceal wheezes. Fairly significant left basilar wheezes and rhonchi. Abdominal: Soft. No distension. No mass. No tenderness. No rebound. No guarding. Musculoskeletal: RUE: Normal range of motion. No tenderness. No deformity LUE: Normal range of motion. No tenderness. No deformity RLE: Normal range of motion. No edema. No tenderness. No deformity LLE: Normal range of motion. No edema. No tenderness. No deformity Neurological: Alert and oriented to person, place, and time. Normal strength. CN II-VII intact. No sensory deficit. GCS eye subscore is 4. GCS verbal subscore is 5. GCS motor subscore is 6. Normal coordination Skin: Skin is warm and dry. No rash noted. No pallor. Normal capillary refill. Psychiatric: Normal mood. Normal affect. Const: Vital Signs, click to edit/add: Vital Signs - 24 hr 02/07/25 14:28 Temperature 97.8 F Pulse Rate [Pulse Oximeter] 91 Respiratory Rate 16 Blood Pressure [Ri ght Upper Arm] 142/93 H Pulse Oximetry 98 Oxygen Delivery Me thod Room Air Course Course ED Course: Recheck-after DuoNeb reports minimal to no improvement. Still breathing easily. Oxygen still normal. Vital Signs Vital signs: Initial Vital Signs Temperature 97.8 F 02/07/25 14:28 Temperature Source Temporal Artery Scan 02/07/25 14:28 Pulse Rate 91 02/07/25 14:28 Respiratory Rate 16 02/07/25 14:28 Blood Pressure 142/93 H 02/07/25 14:28 Blood Pressure Mean 109 H 02/07/25 14:28 Blood Pressure Position Sitting 02/07/25 14:28 Pulse Oximetry 98 02/07/25 14:28 Oxygen Delivery Method Room Air 02/07/25 14:28 Vital Signs Temperature 97.8 F 02/07/25 14:28 Pulse Rate 91 02/07/25 14:28 Respiratory Rate 16 02/07/25 14:28 Blood Pressure 142/93 H 02/07/25 14:28 Pulse Oximetry 98 02/07/25 14:28 Oxygen Delivery Method Room Air 02/07/25 14:28 Temperature 97.8 F 02/07/25 14:28 Pulse Rate 91 02/07/25 14:28 Respiratory Rate 16 02/07/25 14:28 Blood Pressure 142/93 H 02/07/25 14:28 Pulse Oximetry 98 02/07/25 14:28 Oxygen Delivery Method Room Air 02/07/25 14:28 Medications Administered Medications: Discontinued Medications Generic Name Dose Route Start Last Admin Trade Name Freq PRN Reason Stop Dose Admin Albuterol/Ipratropium 1 neb 02/07/25 15:07 02/07/25 15:17 Iprat-Albut 0.5-2.5 Mg/3 Ml Neb IH 02/07/25 15:08 1 neb ONCE ONE Administration Medical Decision Making [facility] Narrative Medical decision making narrative: Very pleasant 49-year-old gentleman presenting to the ER today with a 2 week history of cough now associated with episodes of near syncope during coughing spells. Does not have any history of tobacco use or chronic lung disease but does have 1 previous infection with ?walking pneumonia. ?. He was sent to the ER today after a phone call to his clinic triage line In terms of the near syncope it does sound like this was induced by a coughing spell and therefore less likely to represent cardiac arrhythmia, acute coronary syndrome. He does not have any murmur. Screening EKG does show normal sinus rhythm. No arrhythmogenic abnormality such as WPW, prolonged QT, Brugada syndrome. No ischemia. On lung exam he does have scares diffuse wheezing and significant wheezing and rales in the left base. Chest x-ray is obtained and by my read does show evidence for a retrocardiac/left lower lobe infiltrate. Will treat him with antibiotics for community-acquired pneumonia. At this point he is not having any respiratory distress, persistent coughing, the. Oxygen saturations are normal. Blood pressure and pulse are stable. No sepsis physiology. I do not think he needs IV, lab work, or admission for sepsis. Precautions for return to the ER were carefully reviewed with the patient. In addition to community-acquired pneumonia he does had some minimal wheezing. We did try empiric DuoNeb without much improvement here in the ER. At this point no clear evidence that he will respond to bronchodilator therapy at home so would hold off on albuterol inhalers or steroids. He has no history of asthma. Nonsmoker. Imaging Data Chest x-ray: Attestation: I have reviewed the pertinent imaging results. My impression: Positive spine sign on lateral view. Suspect left lower lobe retrocardiac infiltrate. Radiologist's impression: mpression: Mild left basilar opacity may represent atelectasis, aspiration, or developing infection. ECG Data Attestation: I personally reviewed and interpreted this ECG as follows: Interpretation: Normal sinus rhythm Rate: 75 NC: 158 QRS axis: Normal axis ST segment/T wave: No pathologic Q-waves. No ST segment elevation or depression. QTc: 408 Discharge Plan Discharge Clinical Impression: Pneumonia Patient Disposition: Home, Self-Care Condition: Stable Instructions: Community Acquired Pneumonia (DC) Additional Instructions: As we discussed, your chest x-ray shows signs of a pneumonia in your left lower lung. We are going to treat this pneumonia with a course of antibiotics (doxycycline). You should start to feel better after about 48 or 72 hours. If you are not feeling dramatically better within 3 days, please recheck with your doctor or come back to the ER for re-evaluation. If you get worse-for instance if you have worsening trouble breathing, high fever, coughing up blood, please return to the ER right away to be rechecked. Prescriptions: New doxycycline monohydrate 100 mg capsule 100 mg PO BID PRNQty: 14 0RF No Action pantoprazole [Protonix] 40 mg tablet,delayed release (DR/EC) 40 mg PO DAILY hydrochlorothiazide 25 mg tablet 25 mg PO DAILY amlodipine-benazepril 10-40 mg capsule 1 cap PO DAILY Follow Up/Referrals: Dale Barrera MD [Primary Care Provider] - Stand Alone Forms: [employer] Info Instructions
--- NOTE | 2025-02-07 15:04 | CRLHL7_ITS ---
For Patients: As a result of the Cures Act, medical imaging exams and procedure reports are released immediately into your electronic medical record. You may view this report before your referring provider. If you have questions, please contact your health care provider. Indication: cough, near syncope, left basilar rales. Technique: PA and lateral views of the chest. Comparison: None. Findings: Low lung volumes. Normal cardiomediastinal silhouette. Mild left basilar opacity. No pleural effusion or visualized pneumothorax. Impression: Mild left basilar opacity may represent atelectasis, aspiration, or developing infection. Dictated by Niraj Beckwith MD @ 02/07/2025 4:17:03 PM (Electronically Signed)
--- OUTSIDE RECORDS SUMMARY | 2025-02-07 15:16 | XMS_ITS | Clinical Summary ---
Author Organization [facility] Address [address] [place] [address] Care Team Providers Care Crew Scheduler Name Role Phone Alessandro Bolaños MD Unavailable [phone] Dale Barrera MD Primary Care Provider Alexa Stevens MD Unavailable [phone] Allergies Active Allergy Reactions Criticality Noted [...] Team Description 02/07/2025 1:50 PM CDT Telemedicine [facility] [address] [place] [address] Radha Cano, RAZA Cough; Near Syncope; Telehealth (Virtual visit, no vitals taken ) 02/07/2025 Travel 12/31/2024 10:30 AM SIZE TESTER Office Visit [facility] [address] [place] [address] Dale Barrera MD Physical (49 year old physical ); Hypertension Care Management (elevated home BP readings) 12/31/2024 Travel 12/28/2024 Travel 12/21/2024 Refill [facility] [address] [place] [address] Dale Barrera MD Refill Request (Amlodipine-benazepri l (5-20 Mg)) 12/10/2024 Refill [facility] [address] [place] [address] Dale Barrera MD Refill Request (Pantoprazole) from Last 3 Months Immunizations Immunization Administration Dates Next Due AMB Influenza, IIV3 (Age >=3 years)(Flu Clinic Only) 08/29/2012,09/11/2011 AMB Influenza, IIV4 PF (=>6 mos Flulaval,Fluzone Fluarix)(Flu Clinic Only) 08/26/2018,09/17/2017,08/18/2015 COVID-19 VACCINE SPIKEVAX (M ODERNA 50MCG/0.5ML) 12YO+ PFS 09/03/2024,10/10/2023 COVID-19 vaccine (Moderna 100mcg/0.5mL) PF, MDV 03/15/2021,02/15/2021 COVID-19 vaccine (StyleTrekBio NTech 30mcg/0.3mL) 12YO+ BIVALENT PF, MDV 09/23/2022 COVID-19 vaccine (StyleTrekBio NTech 30mcg/0.3mL) 12YO+ TREVOR-SUCROSE PF, MDV 04/17/2022 [...] on file Legal Sex Male 6:36 AM SIZE TESTER Gender Identity Not on file Sexual Orientation Not on file Obstetrics History Last Filed Vital Signs Vital Sign Reading Time Taken Comments Blood Pressure 146/82 12/31/2024 10:28 AM SIZE TESTER Pulse 77 12/31/2024 10:28 AM SIZE TESTER Temperature 36.8 C (98.2 F) 11/22/2023 12:32 PM SIZE TESTER Respiratory Rate 14 11/22/2023 12:32 PM SIZE TESTER Oxygen Saturation 99% 12/31/2024 10:28 AM SIZE TESTER Inhaled Oxygen Concentration - - Weight 108.4 kg (239 lb) 12/31/2024 10:28 AM SIZE TESTER Height 191.5 cm (6' 3.39) 12/31/2024 10:[address] Body Mass Index 29.56 12/31/2024 10:28 AM SIZE TESTER Plan of Treatment Health Maintenance Due Date [...] REFLEX MEASURED LDL Routine 12/31/2024 11:04 AM SIZE TESTER Dyslipidemia HEMOGLOBIN A1C Routine 12/31/2024 11:04 AM SIZE TESTER Prediabetes BASIC METABOLIC PANEL Routine 12/31/2024 11:04 AM SIZE TESTER Essential hypertension ANTI HIV 1/2 Routine 12/17/2023 9:26 AM SIZE TESTER Screening for HIV (human immunodeficiency virus) ANTI HCV Routine 09/23/2022 4:10 PM SIZE TESTER Need for hepatitis C screening test COLONOSCOPY SCREENING Routine 12/18/2021 10:13 AM SIZE TESTER Screen for colon cancer from Last 3 Months or Most Recently Relevant to Health Maintenance Results * HEMOGLOBIN A1C (12/31/2024 11:04 AM SIZE TESTER) HEMOGLOBIN A1C 5.6 <5.7 % of total Hgb [facility] Comment: For the purpose of screening for the presence of diabetes: <5.7% Consistent with the absence of diabetes 5.7-6.4% Consistent with increased risk for diabetes (prediabetes) > or =6.5% Consistent with diabetes This assay result is consistent with a decreased risk of diabetes. Currently, no consensus exists regarding use of hemoglobin A1c for diagnosis of diabetes in children. According to [place] Diabetes Association (ADA) guidelines, hemoglobin A1c <7.0% represents optimal control in non- diabetic patients. Different metrics may apply to specific patient populations. Standards of Medical Care in Diabetes(ADA). Blood BLOOD SPECIMEN / Unknown 12/31/2024 11:04 AM SIZE TESTER 12/31/2024 11:05 AM SIZE TESTER Dale Barrera MD CHEMISTRY Final Result [facility] [address] [place] [address], [facility] [address] [place] [address] * (ABNORMAL) LIPID PANEL W REFLEX MEASURED LDL (12/31/2024 11:04 AM SIZE TESTER) [facility] Signature CHOLESTEROL, TOTAL 208(H) <200 mg/dL [facility] HDL CHOLESTEROL 55 > OR = 40 mg/dL [facility] TRIGLYCERIDES 227(H) <150 mg/dL [facility] Comment: If a non-fasting specimen was collected, consider repeat triglyceride testing on a fasting specimen if clinically indicated. Nando et al. J. of Clin. Lipidol. 2015;9:129-169. LDL-CHOLESTEROL 119(H) mg/dL (calc) [facility] Comment: Reference range: <100 Desirable range <100 mg/dL for primary prevention; <70 mg/dL for patients with CHD or diabetic patients with > or = 2 CHD risk factors. LDL-C is now calculated using the Valdez-Jo Ann calculation, which is a validated novel method providing better accuracy than the Friedewald equation in the estimation of LDL-C. Valdez SS et al. KENNEDY. 2013;310(19): 5719-2852 (http://education.Farmainstant/faq/IOJ506) CHOL/HDLC RATIO 3.8 <5.0 (calc) [facility] NON HDL CHOLESTEROL 153(H) <130 mg/dL (calc) [facility] Comment: For patients with diabetes plus 1 major ASCVD risk factor, treating to a non-HDL-C goal of <100 mg/dL (LDL-C of <70 mg/dL) is considered a therapeutic option. Blood BLOOD SPECIMEN / Unknown 12/31/2024 11:04 AM SIZE TESTER 12/31/2024 11:05 AM SIZE TESTER us Dale Barrera MD CHEMISTRY Final Result [facility] [address] [place] [address], [place] [phone] [facility] [address] [place] [address] * (ABNORMAL) BASIC METABOLIC PANEL (12/31/2024 11:04 AM SIZE TESTER) Pathologist [facility] GLUCOSE 107(H) 65 - 99 mg/dL [facility] [...] BLOOD SPECIMEN / Unknown 12/31/2024 11:04 AM SIZE TESTER 12/31/2024 11:05 AM SIZE TESTER us Dale Barrera MD CHEMISTRY Final Result [facility] [address] [place] [address], [place] [phone] [facility] [place] [address] [place] [address] * ANTI HIV 1/2 (12/17/2023 9:26 AM SIZE TESTER) [facility] HIV-1/HIV-2 SCREEN Non-Reacti ve Non-Reacti ve 12/17/2023 9:58 PM SIZE TESTER [facility] Comment:HIV-1 p24 and HIV-1/ HIV-2 Ab Not Detected. Blood BLOOD SPECIMEN / Unknown Venipuncture / Unknown 12/17/2023 9:26 AM SIZE TESTER 12/17/2023 9:27 AM SIZE TESTER Dale Barrera MD SEND OUTS Final Result [facility] [address] [place] [address], [place] * ANTI HCV (09/23/2022 4:10 PM SIZE TESTER) [facility] HEPATITIS C ANTIBODY Non-React demetra Non-React demetra 09/24/2022 4:39 PM SIZE TESTER [facility] Comment:Antibodies to HCV no t detected; does not exclude the possibility of exposure to HCV. Blood BLOOD SPECIMEN / Unknown Venipuncture / Unknown 09/23/2022 4:10 PM SIZE TESTER 09/23/2022 4:14 PM SIZE TESTER Dale Barrera MD SEND OUTS Final Result [facility] [address] [place] [address], [place] * COLONOSCOPY (12/18/2021 10:10 AM SIZE TESTER) 12/18/2021 10:1 0 AM SIZE TESTER Narrative Transcriptions Valdez Juarez MD - 12/18/2021 11:26 AM CST Patient Name: Jem Natarajan Procedure Date: 12/18/2021 Gender: Male Date of : 1975 Admit Type: Outpatient Procedure: Colonoscopy Proceduralist: Valdez Juarez MD , Elda Hernandez RN(Nurse) Referring MD: Valdez Juarez Indications/Pre-Op Diagnosis: Screening for colorectal malignant [...] 10:10 AM Procedure Code(s): --- Professional --- 82673, Colonoscopy, flexible; with removalof tumor(s), polyp(s), or other lesion(s) bysnare technique Diagnosis Code(s): --- Professional --- Z12.11, Encounter for screening formalignant neoplasm of colon K63.5, Polyp of colon CPT copyright 2020 [employer]. All rights reserved. The codes documented in this report are preliminary and upon medical insurance coder reviewmay be revised to meet current compliance requirements. Scope In: 11:05:08 AM Scope Withdrawal Time 0 hours 11 minutes 6 seconds Scope Out: 11:20:46 AM us Valdez Juarez MD PROCEDURE ORD Final Res ult from Last 3 Months or Most Recently Relevant to Health Maintenance Insurance [facility] Care Teams Crew Scheduler Relationship Specialty Start Date End Date Dale Barrera MD [address] [place] [address] PCP - General Family Practice 01/21/14 Alessandro Bolaños MD Urology Surgery - Urology 08/14/11 Alexa Stevens MD [address] [place] [address] Rheumatology Rheumatology 10/02/17
--- OUTSIDE RECORDS SUMMARY | 2025-02-07 15:16 | XMS_ITS | Encounter Summary ---
Author Organization [facility] Address [address] [address] Phone Care Team Providers Care Dialysis Registered Nurse Name Role Phone Unavailable Primary Care Provider Unavailabl e Encounter Details Date Type Department Care Team (Late st Contact Info) Description 03/06/2018 Scanned - Medical Reports 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
--- OUTSIDE RECORDS SUMMARY | 2025-02-07 15:16 | XMS_ITS | Clinical Summary ---
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
--- OUTSIDE RECORDS SUMMARY | 2025-02-07 15:16 | XMS_ITS | Clinical Summary ---
Author Organization [facility] Address [address] [place] [address]. [place] [address] Care Team Providers Care Medical Associate Name Role Phone [facility] [place] Primary Care Provider Allergies Active Allergy Reactions [...] on file Legal Sex Male 3:44 AM HEALTH PRACTICE MANAGER Gender Identity Not on file Sexual Orientation Not on file Last Filed Vital Signs Vital Sign Reading Time Taken Comments Blood Pressure 140/93 12/17/2022 9:45 AM HEALTH PRACTICE MANAGER Pulse 77 12/17/2022 9:45 AM HEALTH PRACTICE MANAGER Temperature 36.2 C (97.1 F) 12/17/2022 9:45 AM HEALTH PRACTICE MANAGER Respiratory Rate 16 12/17/2022 9:45 AM HEALTH PRACTICE MANAGER Oxygen Saturation 98% 12/17/2022 9:45 AM HEALTH PRACTICE MANAGER Inhaled Oxygen Concentration - - Weight 106.2 kg (234 lb 3.2 oz) 12/17/2022 6:00 AM HEALTH PRACTICE MANAGER Height 193 cm (6' 4) 12/17/2022 6:00 AM HEALTH PRACTICE MANAGER Body Mass Index 28.51 12/17/2022 6:00 AM HEALTH PRACTICE MANAGER Plan of Treatment Health Maintenance Due Date [...] patient's age to complete this topic Insurance [employer] Care Teams Medical Associate Relationship Specialty Start Date End Date [address] [address] PCP - General 12/17/22
[2025-02-07] MEDS: IPRAT-ALBUT 0.5-2.5 MG/3 ML NEB 1 NEB IH (15:17)
== END 2025-02-07 16:47 | disposition home or self-care (01) ==
PROVIDERS: Emergency Provider Emergency Medicine; PCP Family Medicine
DX: J18.9 Pneumonia, unspecified organism (principal)
CPT/HCPCS: 71046; 93005; 99283; 99284